=== PATIENT | male | born 1980 | race American Indian/Alaskan Native ===

== ENCOUNTER 2017-11-20 12:11 | Emergency (ER) | payer OTHER ==
[2017-11-20 13:03] VITALS: BP 141/107; PULSE 88; RESP 18; TEMP 97; O2SAT 99
--- NOTE | 2017-11-20 13:37 | ED PDOC ---
HPI: Dental Pain/Injury Time Seen by Provider: 11/20/17 13:07 Chief Complaint (Nursing): Dental Pain Chief Complaint (Provider): Bleeding from gums History Per: Patient History/Exam Limitations: no limitations Onset/Duration Of Symptoms: Days (1) Current Symptoms Are (Timing): Still Present Additional Complaint(s): Patient reports yesterday he went to the dentist for the first time and got his teeth cleaned and after that, his gums will not stop bleeding. Patient states he noticed the bleeding on his gumline near his right upper 3rd molar, left upper 3rd molar and left lower 3rd molar. He denies any history of bleeding disorders and also denies any family history of bleeding disorders. He has no other complaints. Past Medical History Reviewed: Historical Data, Nursing Documentation, Vital Signs Vital Signs: Last Vital Signs Temp 97 F L 11/20/17 13:00 Pulse 88 11/20/17 13:00 Resp 18 11/20/17 13:00 BP 141/107 H 11/20/17 13:00 Pulse Ox 99 11/20/17 13:00 - Medical History PMH: No Chronic Diseases - Surgical History Surgical History: No Surg Hx - Family History Family History: States: No Known Family Hx - Allergies Allergies/Adverse Reactions: Allergies Allergy/AdvReac Type Severity Reaction Status Date / Time No Known Allergies Allergy Verified 11/20/17 12:59 Review of Systems ROS Statement: Except As Marked, All Systems Reviewed And Found Negative ENT: Positive for: Other (bleeding gums) Physical Exam - Reviewed Nursing Documentation Reviewed: Yes Vital Signs Reviewed: Yes - Physical Exam Appears: Positive for: Non-toxic, No Acute Distress Head Exam: Positive for: ATRAUMATIC, NORMAL INSPECTION, NORMOCEPHALIC Skin: Positive for: Normal Color, Warm Eye Exam: Positive for: EOMI, PERRL ENT: Positive for: Other (bleeding noted to gumline near right uppert 3rd molar , left upper 3rd molar and left lower 3rd molar) Neck: Positive for: Supple Cardiovascular/Chest: Positive for: Regular Rate, Rhythm Neurologic/Psych: Positive for: Alert, Oriented - Laboratory Results Result Diagrams: 11/20/17 13:54 11/20/17 13:54 - ECG O2 Sat by Pulse Oximetry: 99 (RA) Pulse Ox Interpretation: Normal Medical Decision Making Medical Decision Making: Impression: Bleeding gums s/p teeth cleaning procedure Plan: -- CMP -- CBC -- PT -- PTT Time: 1450 Labs reviewed and show no acute abnormalities. Time: 1520 On re-evaluation, patient is stable but still has mild bleeding from his gums, mostly to the L upper and lower 3rd molars. Case discussed with Dr. Flannery, heme-onc online tutor who suggests presentation is likely due to mechanical bleeding. He recommends no further testing or evaluation to be done in ER. Gelfoam dressing applied to the L upper and lower 3rd molars, and patient advised to apply ice to his L cheek to control bleeding. Call placed to patient's dentist, with no call back. On re-evaluation, patient is resting in bed comfortably in no acute distress with improvement of bleeding. On exam, no active bleeding noted at this time. Advised to continue to apply ice to his L cheek off and on, liquid diet for now and to see his dentist in the AM. Based on history, exam and diagnostic results plan will be for follow-up with dentist in the AM. Advised to follow up with his dentist in the AM w/o fail. Return to the emergency room at any time for any new or worsening symptoms. Patient states he fully agrees with and understands discharge instructions. States that he agrees with the plan and disposition. Verbalized and repeated discharge instructions and plan. I have given the patient opportunity to ask any additional questions. Scribe Attestation: Documented by Myranda [employer] acting as a scribe for ALEJANDRA Knutson Provider Attestation: All medical record entries made by the Scribe were at my direction and personally dictated by me. I have reviewed the chart and agree that the record accurately reflects my personal performance of the history, physical exam, medical decision making, and the department course for this patient. I have also personally directed, reviewed, and agree with the discharge instructions and disposition. Disposition - Clinical Impression Clinical Impression: Bleeding gums - Patient ED Disposition Is Patient to be Admitted: No Counseled Patient/Family Regarding: Studies Performed, Diagnosis, Need For Followup - Disposition Disposition: Routine/Home Disposition Time: 15:34 Condition: STABLE Additional Instructions: Thank you for letting us take care of you today. You were treated for bleeding gums. The emergency medical care you received today was directed at your acute symptoms. Return to the Emergency Department if your symptoms worsen, do not improve, or if you have any other problems. Please see her dentist tomorrow morning for re-evaluation and follow up without fail. Bring any paperwork you were given at discharge with you along with any medications you are taking to your follow up visit. Our treatment cannot replace ongoing medical care by a primary care provider (PCP) outside of the emergency department. Thank you for allowing the [facility] team to be part of your care today. Instructions: Acute Dental Trauma (ED) Forms: [employer] (Kazakh), [facility] ED School/Work Excuse - PA / [employer] / Resident Statement MD/DO has reviewed & agrees with the documentation as recorded.
[2017-11-20 14:01] LABS: BASO % 0.8 % (0.0-2.0); EOS # 0.1 K/uL (0.0-0.7); EOS % 1.4 % (0.0-4.0); HEMOGLOBIN 15.2 g/dL (12.0-18.0); LYMPH # 2.2 K/uL (1.0-4.3); MEAN CELL VOLUME 71.1 fl (80.0-94.0); MEAN CORPUSCULAR HEMOGLOBIN 22.1 pg (27.0-31.0); MEAN CORPUSCULAR HGB CONC 31.1 g/dL (33.0-37.0); MEAN PLATELET VOLUME 8.7 fl (7.2-11.7); MONO # 0.4 K/uL (0.0-0.8); MONO % 7.8 % (0.0-10.0); NEUT # 2.2 K/uL (1.8-7.0); NRBC % 0.5 % (0.0-0.0); RBC 6.89 Mil/uL (4.40-5.90); RED CELL DISTRIBUTION WIDTH 15.2 % (11.5-14.5); WHITE BLOOD COUNT 4.9 K/uL (4.8-10.8)
[2017-11-20 14:16] LABS: ALB/GLOB RATIO 1.4 (1.0-2.1); ALBUMIN 4.5 g/dL (3.5-5.0); ALT/SGPT 99 U/L (21-72); AST/SGOT 37 U/L (17-59); BLOOD UREA NITROGEN 10 mg/dl (9-20); CALCIUM 9.6 mg/dL (8.4-10.2); GFR AFRICAN-AMERICAN > 60; GFR NON-AFRICAN AMERICAN > 60
[2017-11-20 14:21] LABS: PROTHROMBIN TIME 10.7 Seconds (9.8-13.1)
[2017-11-20 14:22] LABS: PARTIAL THROMBOPLASTIN TIME 34.8 Seconds (25.6-37.1)
[2017-11-20] MEDS ORDERED: Absorbable Gelatin Sponge Size 12-7 ONE ×2 (15:30→15:41)
[2017-11-20] MEDS ORDERED: Absorbable Gelatin Sponge Size 12-7 MM STA (15:45)
== END 2017-11-20 17:21 | disposition home or self-care (01) ==
LOC: H.ER 12:11
DX: K08.89 Other specified disorders of teeth and supporting structures (principal)